=== PATIENT | male | born 1980 | race Two or more races ===

== ENCOUNTER 2024-04-10 19:17 | Emergency (ER) | payer OTHER ==
[~2024-04-10] VITALS: Ht 167.6 cm; Wt 136.1 kg
[2024-04-10] MEDS ORDERED: NORVASC5 MG (19:55)
[2024-04-10] MEDS ORDERED: CARAFATE1 GM (19:55)
[2024-04-10] MEDS ORDERED: LOPRESSOR25 MG PO (19:56)
[2024-04-10] MEDS ORDERED: NAPROSYN125 MG/5 M (19:56)
[2024-04-10] MEDS ORDERED: LIPITOR20 MG PO (19:56)
[2024-04-10] MEDS ORDERED: NEURONTIN600 M1 PO (19:56)
[2024-04-10] MEDS ORDERED: METFORMIN HCL1000 M2 (19:57)
[2024-04-10] MEDS ORDERED: SYNTHROID137 MCG PO (19:57)
[2024-04-10] MEDS ORDERED: LANTUS SOL100 UNIT/1 SQ (19:58)
[2024-04-10] MEDS ORDERED: 0.9 % SODIUM CHLORIDE 1,000 ML IV SCH (20:30)
[2024-04-10] MEDS ORDERED: FAMOTIDINE/PF 20 MG in 0.9 % SODIUM CHLORIDE 8 ML IV PUSH STA (20:30)
[2024-04-10] MEDS ORDERED: INSULIN REGULAR, HUMAN 1,000 UNIT/10 ML UNITS IV ONE (20:30)
[2024-04-10] MEDS ORDERED: ONDANSETRON HCL 2 MG/ML VIAL IV ONE (20:30)
[2024-04-10 21:18] LABS: HEMOGLOBIN 14.1 g/dL (13-16.00); MEAN CELL VOLUME 86.3 fL (80.0-100.00); MEAN CORPUSCULAR HEMOGLOBIN 29.6 pg (27.00-32.0); MEAN CORPUSCULAR HGB CONC 34.3 g/dl (32.0-36.0); PLATELET COUNT 295 K/uL (150-450); RED BLOOD COUNT 4.76 M/uL (4.00-6.00); RED CELL DISTRIBUTION WIDTH 12.9 % (11.5-14.5)
[2024-04-10 23:40] LABS: URINE APPEARANCE Cloudy; URINE BACTERIA 4710.8 uL (0.0-1933); URINE BILIRRUBIN Negative (NEGATIVE); URINE BLOOD NHT; URINE COLOR Yellow; URINE EPITHELIAL CELLS 19.1 uL (0.0-38.8); URINE KETONE Negative (NEGATIVE); URINE LEUKOCYTE Small; URINE NITRATE Negative; URINE RBC 11.6 uL (0.0-20.8); URINE UROBILINOGEN 0.2 E.U./dl; URINE WBC 169.6 uL (0.0-23.2)
[2024-04-10 23:43] LABS: ALBUMIN 2.6 gm/dL (3.4-5.0); BILIRUBIN TOTAL 0.26 mg/dL (0.3-1.2); CALCIUM 8.9 mg/dL (8.5-10.1); CREATININE SERUM 1.07 mg/dL (0.70-1.30); GFR 75.08; GLOBULINA 3.5 G/DL (2.4-3.5); POTASSIUM 4.57 mEq/L (3.5-5.1); TOTAL PROTEIN 6.1 gm/dL (6.4-8.2)
[2024-04-10] MEDS ORDERED: INSULIN LISPRO 1,000 UNIT/10 ML UNITS SUBCUTANEO PRN (23:45)
[2024-04-10] MEDS ORDERED: DEXTROSE 50 % IN WATER 0.5 G/ML DISP.SYRIN IV PRN (23:45)
[2024-04-10] MEDS ORDERED: INSULIN GLARGINE,HUM.REC.ANLOG 1,000 UNITS/10 ML UNITS SUBCUTANEO ONE (23:45)
[2024-04-10] MEDS ORDERED: INSULIN REGULAR, HUMAN 1,000 UNIT/10 ML UNITS SUBCUTANEO ONE (23:45)
[2024-04-11 00:26] LABS: URINE CAST 0.91 uL (0.0-1.40); URINE GLUCOSE >=1000 MG/DL (NEGATIVE); URINE PROTEIN 100 (NEGATIVE); URINE YEAST FEW /hpf
[2024-04-11] MEDS ORDERED: CEFAZOLIN SODIUM 1,000 MG VIAL IM STA (03:23)
== END 2024-04-11 04:09 | disposition home or self-care (01) ==
LOC: ER 19:17
PROVIDERS: General Practice
DX: E11.65 Type 2 diabetes mellitus with hyperglycemia (principal); E11.43 Type 2 diabetes mellitus with diabetic autonomic (poly)neuropathy; K31.84 Gastroparesis; Z79.4 Long term (current) use of insulin; Z79.84 Long term (current) use of oral hypoglycemic drugs; I10 Essential (primary) hypertension